=== PATIENT | female | born 1930 | race Caucasian/White ===

== ENCOUNTER 2018-01-27 20:15 | Inpatient (IN) | payer MEDICARE, OTHER ==
--- NOTE | 2018-01-27 20:42 | ED Physician Chart ---
ED Chief Complaint/HPI - Patient Information Date Seen:: 01/27/18 Time Seen:: 20:30 Chief Complaint:: increased agitation History of Present Illness:: Patient has apparently been exhibiting increased agitation at her longterm facility. Allergies:: Allergies Allergy/AdvReac Type Severity Reaction Status Date / Time codeine Allergy Verified 01/27/18 20:31 iodine Allergy Verified 01/27/18 20:31 warfarin Allergy Verified 01/27/18 20:31 Historian:: Patient Review:: Transfer documents Reviewed ED Past Medical History - Past Medical History Past Medical History: DM, Thyroid disorder, Dementia, Other (hypothyroidism; Parkinson's disease; anemia; Alzheimer's disease) Family History: Other (unavailable) Social History: Non Smoker, No Alcohol, Care Facility Surgical History: Appendectomy Psychiatricy History: Dementia Family Medical History - Family Member Mother History Unknown: Yes ED Physical Exam - Physical Examination General/Constitutional: Well-developed, well-nourished, Alert, No distress Other Gen/Cons comments:: Patient is confused. She states the year is 2019. Upper extremity tremor. Head: Atraumatic Eyes: Lids, conjuctiva normal, PERRL Other Eyes comments:: Partial opacity left cornea Skin: Nl inspection ENMT: External ears, nose nl Other ENMT comments:: Edentulous with upper dentures Neck: No nuchal rigidity Respiratory: Nl effort/Exclusion Other Respiratory comments:: Scattered rales and scattered end inspiratory wheezing Cardio Vascular: RRR Other Cardio Vascular comments:: 3/6 systolic murmur : No CVA tenderness Extremities: Normal digits & nails Neuro/Psych: No focal deficits ED Labs/Radiology/EKG Results - Lab Results Results: Laboratory Results - last 24 hr 01/27/18 01/27/18 01/27/18 20:50 20:50 21:05 WBC 6.4 RBC 4.72 Hgb 13.6 Hct 40.3 L MCV 85.4 MCH 28.8 MCHC Differential 33.7 RDW 14.3 Plt Count 156 MPV 7.9 Neutrophils % 69.6 Lymphocytes % 24.2 Monocytes % 5.4 Eosinophils % 0.7 Basophils % 0.1 Sodium 134 L Potassium 4.1 Chloride 102 Carbon Dioxide 23.4 Anion Gap 12.7 BUN 30 H Creatinine 1.4 H Est GFR ( Amer) TNP Est GFR (Non-Af Amer) TNP BUN/Creatinine Ratio 21.4 Glucose 120 H Calcium 10.2 Total Bilirubin 0.4 AST 17 ALT 11 Alkaline Phosphatase 63 Total Protein 8.0 Albumin 4.3 Globulin 3.7 Albumin/Globulin Ratio 1.2 Triglycerides 146 Cholesterol 170 LDL Cholesterol Direct 106 HDL Cholesterol 43 Urine Source CLEAN C Urine Color YELLOW Urine Clarity CLEAR Urine pH 6.0 Ur Specific [place] 1.020 Urine Protein TRACE Urine Glucose (UA) NEGATIVE Urine Ketones NEGATIVE Urine Blood NEGATIVE Urine Nitrate NEGATIVE Urine Bilirubin NEGATIVE Urine Urobilinogen 0.2 Ur Leukocyte Esterase NEGATIVE Urine RBC NONE SEEN Urine WBC NONE SEEN Ur Epithelial Cells NONE SEEN Urine Bacteria NONE SEEN - EKG Interpretations Rate & Rhythm: normal sinus rhythm with a rate of 66 [place]: bordered Left axis Comments:: 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 Is Septic Shock (SBP<90, OR Lactate>4 mmol\L) present?: No ED Reassessment (Disposition) - Diagnosis Diagnosis:: Dementia; agitation - Patient Disposition Admitted to:: [facility] Admitting Medical Physician:: Lan Logan Admitting Psych Physician:: Connie Leslie Condition at Disposition:: Stable, Unchanged
[2018-01-27 21:10] LABS: % BASOPHILS 0.1 % (0.0-2.0); % EOSINOPHILS 0.7 % (0.0-5.0); % LYMPHOCYTES 24.2 % (20.0-50.0); % MONOCYTES 5.4 % (2.0-10.0); % NEUTROPHILS 69.6 % (40.0-80.0); HEMATOCRIT 40.3 % (41.0-60); HEMOGLOBIN 13.6 gm/dL (12-16); LYMPHOCYTE ABSOLUTE 1.5 Th/cmm (1.5-3.0); MEAN CELL VOLUME 85.4 fl (81-100); MEAN CORPUSCULAR HEMOGLOBIN 28.8 pg (27.0-31.0); MEAN CORPUSCULAR HGB CONC 33.7 pg (28.0-36.0); MEAN PLATELET VOLUME 7.9 fl; MONOCYTE ABSOLUTE 0.3 Th/cmm (0.3-1.0); NEUTROPHILE ABSOLUTE 4.6 Th/cmm (1.8-8.0); PLATELET COUNT 156 Th/cmm (150-400); RED BLOOD COUNT 4.72 Mil/cmm (3.80-5.20); RED CELL DISTRIBUTION WIDTH 14.3 % (11.5-20.0); WHITE BLOOD COUNT 6.4 Th/cmm (4.8-10.8)
[2018-01-27 21:12] LABS: URINE MICROSCOPIC INDICATED? YES; URINE SOURCE CLEAN C
[2018-01-27 21:13] LABS: URINE BILIRUBIN NEGATIVE (NEGATIVE); URINE BLOOD NEGATIVE (NEGATIVE); URINE GLUCOSE (UA) NEGATIVE (NEGATIVE); URINE KETONE NEGATIVE (NEGATIVE); URINE LEUKOCYTE ESTERASE NEGATIVE (NEGATIVE); URINE NITRATE NEGATIVE (NEGATIVE); URINE PROTEIN TRACE mg/dL (NEGATIVE); URINE UROBILINOGEN 0.2 E.U./dL (0.2 - 1.0)
[2018-01-27 21:15] LABS: URINE BACTERIA NONE SEEN /hpf (NONE SEEN); URINE CLARITY CLEAR (CLEAR); URINE COLOR YELLOW; URINE EPITHELIAL CELLS NONE SEEN /lpf (FEW); URINE RBC NONE SEEN /hpf (0-5); URINE WBC NONE SEEN /hpf (0-5)
[2018-01-27 21:29] LABS: ALB/GLOB RATIO 1.2 (1.0-1.8); ALBUMIN 4.3 gm/dL (3.7-5.3); ALKALINE PHOSPHATASE 63 U/L (34-104); ANION GAP 12.7 (7.0-16.0); BILIRUBIN,TOTAL 0.4 mg/dL (0.3-1.0); BUN - UREA NITROGEN 30 mg/dL (7-25); CALCIUM SERUM 10.2 mg/dL (8.6-10.3); CARBON DIOXIDE 23.4 mEq/L (21.0-31.0); CHLORIDE 102 mEq/L (98-107); CHOLESTEROL 170 mg/dL (<200); CREATININE - SERUM 1.4 mg/dL (0.6-1.2); GLUCOSE 120 mg/dL (70-105); HDL -HIGH DENSITY LIPOPROTEIN 43 mg/dL (23-92); POTASSIUM SERUM 4.1 mEq/L (3.5-5.1); SGOT 17 U/L (13-39); SGPT/ALT 11 U/L (7-52); SODIUM SERUM 134 mEq/L (136-145); TRIGLYCERIDES 146 mg/dL (<150)
[2018-01-27 22:16] VITALS: BP 120/78
[2018-01-27] MEDS ORDERED: Acetaminophen 500 MG TAB PO PRN (22:26)
[2018-01-27] MEDS ORDERED: Magnesium Hydroxide (MOM) 30 mL UDC PO PRN (22:26)
[2018-01-27] MEDS ORDERED: Fleet Enema 135 mL RC PRN (22:26)
[2018-01-28] MEDS: Levothyroxine 0.05 Mg Tab PO SCH (07:01)
[2018-01-28] MEDS ORDERED: DONEPEZIL HCL PO SCH (09:00)
[2018-01-28] MEDS ORDERED: MEMANTINE HCL PO SCH (09:00)
[2018-01-28] MEDS ORDERED: [UNRECOGNIZED DRUG - OTHER] PO SCH (09:00)
[2018-01-28] MEDS ORDERED: FAMCICLOVIR 500 MG PO SCH (09:00)
[2018-01-28] MEDS ORDERED: Non-Formulary Item 1 EA (Lactose-Reduced Food [Ensure Liquid] 237 ML) PO SCH (09:00)
[2018-01-28] MEDS: Ferrous Sulfate 325 MG TAB PO SCH ×2 (09:50→18:12)
--- NOTE | 2018-01-28 12:38 | History & Physical ---
ADMIT DATE: 01/27/2018 INTERNAL MEDICINE CONSULTATION HISTORY OF PRESENT ILLNESS: The patient is an 87-year-old female with a past medical history significant for diabetes mellitus, hypertension, coronary artery disease, peptic ulcer disease, arthritis, congestive heart failure, hyperlipidemia, history of herpes zoster. The patient currently being treated for conjunctivitis involving the left eye with corneal opacity. SOCIAL HISTORY: No documented smoking, alcohol abuse. FAMILY HISTORY: Not available. REVIEW OF SYSTEMS: Poor historian, no vomiting, no diarrhea, no melena, no hematochezia. PHYSICAL EXAMINATION: GENERAL: Average female in no obvious respiratory distress. VITAL SIGNS: Include a blood pressure of 110/70, heart rate 80, respiration rate of 18. SKIN: Showed no cellulitis, no ulcer. HEENT: Left corneal opacity with conjunctivitis. NECK: Supple. LUNGS: Clear. HEART: First and second present. ABDOMEN: Soft, minimal epigastric tenderness. Bowel sounds present. EXTREMITIES: Show arthritis. NEUROLOGIC: The patient had no focal motor deficits. LABORATORY DATA: Include WBC of 6.4, hemoglobin 13.6, hematocrit 40.3, platelet count of 156. Sodium 134, potassium 4.1, chloride 102, bicarbonate 23.4, BUN 30, creatinine 1.4. Blood sugar 120. ADMITTING DIAGNOSES: Include diabetes mellitus, hypertension, coronary artery disease, peptic ulcer disease, gastritis, arthritis, congestive heart failure, hyperlipidemia, history of herpes zoster, chronic kidney disease, left corneal opacity with conjunctivitis. CURRENT MEDICINES: Include Tylenol, aspirin, Colace, Aricept, erythromycin, eye ointment, iron supplementation, Lasix, levothyroxine, Ativan, Megace, Namenda, Glucophage, Lopressor, potassium chloride, Zocor. JOB# [id number]
--- NOTE | 2018-01-28 14:50 | Psychosocial Evaluation ---
DATE OF SERVICE: 01/27/2018 IDENTIFYING DATA: The patient is an 87-year-old woman, resident of an extended care facility, that is [facility] in [place]. Information obtained by directly interviewing the patient as well as reviewing the admission papers, and they are reliable. JUSTIFICATION OF HOSPITALIZATION: The patient is admitted here on a voluntary basis in view of her acute agitation and aggressive behavior. CHIEF COMPLAINT: "I came to check the facility." HISTORY OF PRESENT ILLNESS: This is the first psychiatric hospitalization to [facility] for this patient who is reported to have been out of control for the past 1 week. The patient has been screaming and yelling, could not be continued at a lower level of care, and hence the patient has been brought over here for stabilization. When I tried to get the information, the patient has been providing information that she came in here just to visit the facility. The patient is still having problem with the short-term as well as long-term memory deficits; however, the patient is noted to be alert. The patient has major impulse control problem. The patient has no insight into her illness. Judgment is also noted to be very poor. The patient's behavior is equally danger to others. DIAGNOSTIC IMPRESSION: AXIS I: Dementia and behavioral ____, secondary trait. AXIS II: None. AXIS III: As per Dr. Logan. IMMEDIATE TREATMENT PLAN: The patient is going to be observed on inpatient unit, provided with supportive psychotherapy. The patient is going to be closely monitored. Once stabilized, the patient is going to be discharged to [facility] to be followed up on an outpatient basis. JOB# [id number]
[2018-01-28] MEDS: Aspirin 81mg Chewable Tab PO SCH (16:08)
[2018-01-28] MEDS: Multivitamin Tab PO SCH (16:25)
[2018-01-28] MEDS: Potassium Chloride 20 mEq ER Tab PO SCH (16:25)
[2018-01-28 18:06] LABS: A1C % 5.6 % (4.0-6.0)
[2018-01-29] MEDS: Levothyroxine 0.05 Mg Tab PO SCH (06:44)
[2018-01-29] MEDS: Aspirin 81mg Chewable Tab PO SCH (10:07)
[2018-01-29] MEDS: Potassium Chloride 20 mEq ER Tab PO SCH (10:07)
[2018-01-29] MEDS: Multivitamin Tab PO SCH (10:07)
[2018-01-29] MEDS: Ferrous Sulfate 325 MG TAB PO SCH ×2 (10:11→17:49)
--- NOTE | 2018-01-30 00:29 | Progress Notes ---
DATE: 01/29/2018 PSYCHIATRIC PROGRESS NOTE SUBJECTIVE: Staff was spoken to. The patient is interviewed. Mood is noted to be irritable. Affect is constricted. The patient has been trying to get out of the GD chair. The patient has been getting easily irritable and angry. No side effects to the medications are noted. The patient is still confused and demented, but is getting easily agitated. ASSESSMENT AND PLAN: In view of that one, it is decided to start the patient on a low dose of the Seroquel, which is going to be given at 12.5 mg at bedtime and the patient is going to be followed up with the supportive therapy. The patient is not ready to be discharged to a lower level of care in view of her acute psychosis and dementia. JOB# [id number]
[2018-01-30] MEDS: Levothyroxine 0.05 Mg Tab PO SCH (06:54)
[2018-01-30] MEDS: Aspirin 81mg Chewable Tab PO SCH (09:15)
[2018-01-30] MEDS: Ferrous Sulfate 325 MG TAB PO SCH ×2 (09:16→16:13)
[2018-01-30] MEDS: Multivitamin Tab PO SCH (09:16)
[2018-01-30] MEDS: Potassium Chloride 20 mEq ER Tab PO SCH (09:17)
--- NOTE | 2018-01-30 17:59 | Progress Notes ---
DATE: 01/30/2018 PSYCHIATRIC PROGRESS NOTE SUBJECTIVE: Staff was spoken to. The patient is interviewed. Mood is noted to be irritable. Affect is constricted. The patient is getting very confused at this time and has been trying to climb out of the chair. The patient has no insight. The patient has been having sundowning. The patient has been placed on 12.5 mg of Seroquel yesterday and has been able to tolerate the medications. No side effects to the medications are noted at this time. JOB# [id number]
--- NOTE | 2018-01-31 00:56 | Consultation ---
DATE OF CONSULTATION: 01/29/2018 REFERRING PHYSICIAN: Connie Leslie M.D. TYPE OF CONSULTATION: Psychology. HISTORY OF PRESENT ILLNESS: The patient is an 87-year-old female. The patient is a resident of extended care in [place]. The following is by record review and by patient's self report. The patient is being admitted due to acute agitation and aggressive behavior. According to the staff at the patient's facility, the patient has had episodes of screaming and yelling and was unable to be contained and therefore transferred here for stabilization. The patient presents with poor impulse control and no insight into her illness. The patient continued to act out during the clinical interview. The patient reports that she believes she is being held here without her consent and that she came here just to visit the facility. The patient did not answer questions about suicidal ideation or homicidal ideation or plan or intention. The patient was unable to contract for safety at the time of this clinical interview. PAST MEDICAL HISTORY: Please see history and physical by Dr. Logan. PAST PSYCHIATRIC HISTORY: According to record review the patient has a history of dementia with behavioral disturbance. SUBSTANCE ABUSE HISTORY: The patient did not answer these questions. PSYCHOSOCIAL HISTORY: The patient did not answer questions about occupational or educational history or restoration affiliation. The patient did not answer questions about physical or sexual abuse history or current legal problems. MENTAL STATUS EXAMINATION: The patient appears to be her stated age. The patient's attitude is guarded and suspicious. Eye contact is poor. Speech is loud, but spontaneous. Mood is irritable and angry. Affect is constricted and mood congruent. Thought process shows to be confused. The patient did not answer questions about auditory or visual hallucinations or paranoid ideation; however, there is evidence there is some paranoid thoughts being expressed. The patient's behavior has been testing limits and difficult to redirect. The patient has had yelling and screaming episodes on the unit. Impulse control is inadequate. Concentration is poor. The patient did not participate in the memory assessment. Sensorium is alert and oriented to self only. The patient did not participate in the interpretations of proverbs. Insight is impaired. Judgment is impaired. DIAGNOSTIC IMPRESSION: AXIS I: History of dementia with behavioral disturbance. AXIS II: Deferred. AXIS III: Per Dr. Logan. TREATMENT PLAN: The patient has been seen by Dr. Leslie for psychiatric evaluation and for the management of the patient's psychotropic medications. We will provide supportive psychotherapy to include reality orientation, reality differentiation and reality integration. We will provide limit setting as well as de-escalation and anger management for the patient to be able to demonstrate emotional and self-regulation prior to discharge. We will provide motivational enhancement for the patient to become compliant and stay compliant with all aspects of her care and treatment plan. We will provide coping strategies for phase of life issues as well. We will provide daily opportunities for the patient to verbally contract for safety to include no self-harm or any harm to others. Thank you, Dr. Leslie, for this consult and the opportunity to participate with you in this patient's care. JOB# [id number] ZOE
[2018-01-31] MEDS: Levothyroxine 0.05 Mg Tab PO SCH (06:52)
[2018-01-31] MEDS: Ferrous Sulfate 325 MG TAB PO SCH ×2 (08:36→16:42)
[2018-01-31] MEDS: Aspirin 81mg Chewable Tab PO SCH (08:36)
[2018-01-31] MEDS: Multivitamin Tab PO SCH (08:37)
[2018-01-31] MEDS: Potassium Chloride 20 mEq ER Tab PO SCH (08:37)
--- NOTE | 2018-01-31 18:46 | Progress Notes ---
DATE: 01/31/2018 SUBJECTIVE: Staff was spoken to. The patient is interviewed. Mood is noted to be irritable. Affect is constricted. The patient is still confused and trying to walk out of the unit. The patient needs to be redirected. No side effects to the medications are noted. ASSESSMENT: The patient is still confused, demented, and paranoid. PLAN: To continue the patient with the supportive therapy. I encouraged the patient to verbalize the concerns rather than to act out. JOB# [id number]
[2018-02-01] MEDS: Levothyroxine 0.05 Mg Tab PO SCH (06:55)
[2018-02-01] MEDS: Potassium Chloride 20 mEq ER Tab PO SCH (09:11)
[2018-02-01] MEDS: Multivitamin Tab PO SCH (09:12)
[2018-02-01] MEDS: Aspirin 81mg Chewable Tab PO SCH (09:14)
[2018-02-01] MEDS: Ferrous Sulfate 325 MG TAB PO SCH ×2 (09:14→16:24)
[2018-02-02] MEDS: Levothyroxine 0.05 Mg Tab PO SCH (06:52)
--- NOTE | 2018-02-02 08:30 | Diagnostic Imaging Report ---
Skull series (2 views) HISTORY: Headache, trauma No acute abnormalities and no fractures. No abnormal intracranial calcifications. IMPRESSION: 1. No acute abnormalities
[2018-02-02] MEDS: Potassium Chloride 20 mEq ER Tab PO SCH (08:56)
[2018-02-02] MEDS: Ferrous Sulfate 325 MG TAB PO SCH ×2 (09:00→17:08)
[2018-02-02] MEDS: Multivitamin Tab PO SCH (09:00)
[2018-02-02] MEDS: Aspirin 81mg Chewable Tab PO SCH (09:03)
--- NOTE | 2018-02-02 21:49 | Progress Notes ---
DATE: 02/02/2018 PSYCHIATRIC PROGRESS NOTE SUBJECTIVE: Staff was spoken to. The patient is interviewed. Mood is noted to be irritable. Affect is constricted. The patient continues to be very confused and has been focused on leaving. The patient has been trying to push the exit doors. The patient has no insight into her illness. Coping skills are noted to be very poor. The patient needs to be redirected at this time. ASSESSMENT: The patient is psychotic and demented. PLAN: To continue the patient with the supportive therapy and followup. JOB# [id number]
[2018-02-03] MEDS: Levothyroxine 0.05 Mg Tab PO SCH (07:45)
[2018-02-03] MEDS: Aspirin 81mg Chewable Tab PO SCH (09:18)
[2018-02-03] MEDS: Potassium Chloride 20 mEq ER Tab PO SCH (09:19)
[2018-02-03] MEDS: Multivitamin Tab PO SCH (09:19)
[2018-02-03] MEDS: Ferrous Sulfate 325 MG TAB PO SCH ×2 (09:19→17:11)
--- NOTE | 2018-02-04 00:16 | Progress Notes ---
DATE: 02/03/2018 SUBJECTIVE: Staff was spoken to. The patient is interviewed. Mood is noted to be anxious. The patient is still confused and has been having difficult time to cope with the stress. Paranoid delusions are noted, but the patient is not presenting with any threats to harm self or others at this time. ASSESSMENT: The patient's psychosis is resolving, but the patient continues to be demented. PLAN: To continue the patient with supportive therapy and possibly discharge the patient today for followup on outpatient basis. JOB# [id number]
== END 2018-02-03 22:15 | DRG 57 ==
LOC: ER 20:15 → GERO2 21:40
PROVIDERS: ADMIT Psychiatry & Neurology Psychiatry; ATTEND Psychiatry & Neurology Psychiatry
DX: G30.9 Alzheimer's disease, unspecified (principal); F02.81 Dementia in other diseases classified elsewhere, unspecified severity, with behavioral disturbance; I13.0 Hypertensive heart and chronic kidney disease with heart failure and stage 1 through stage 4 chronic kidney disease, or unspecified chronic kidney disease; N18.9 Chronic kidney disease, unspecified; E03.9 Hypothyroidism, unspecified; G20 Parkinson's disease; I25.10 Atherosclerotic heart disease of native coronary artery without angina pectoris; K27.9 Peptic ulcer, site unspecified, unspecified as acute or chronic, without hemorrhage or perforation; I50.9 Heart failure, unspecified; E78.5 Hyperlipidemia, unspecified; H10.9 Unspecified conjunctivitis; K29.70 Gastritis, unspecified, without bleeding; M19.90 Unspecified osteoarthritis, unspecified site; E11.22 Type 2 diabetes mellitus with diabetic chronic kidney disease; Z90.49 Acquired absence of other specified parts of digestive tract
CPT/HCPCS: 36415-UA; 70250-TC; 80053-TC; 80061-TC; 81001-TC; 83036-90; 84443-TC; 85025-TC; 86592-TC; 93005; Z7610